=== PATIENT | male | born 1990 | race Hispanic/Latino ===

== ENCOUNTER 2018-05-13 05:01 | Emergency (ER) | payer OTHER ==
[2018-05-13 05:20] VITALS: TEMP 97.5
[2018-05-13] MEDS ORDERED: Sodium Chloride 0.9% 1,000 ML IV STA (05:31)
--- NOTE | 2018-05-13 05:44 | ED PDOC ---
HPI: Abdomen Time Seen by Provider: 05/13/18 05:23 Chief Complaint (Nursing): Abdominal Pain Chief Complaint (Provider): Abdominal Pain History Per: Patient History/Exam Limitations: no limitations Onset/Duration Of Symptoms: Hrs (x1) Current Symptoms Are (Timing): Constant Severity: Severe Location Of Pain/Discomfort: LUQ, LLQ Quality Of Discomfort: Sharp Associated Symptoms: Nausea. denies: Vomiting Additional Complaint(s): 27 years old male with history of kidney stones 8 years ago, presents to ER for evaluation of left sided abdominal pain radiating to back onset 1 hour ago. Patient reports he was awoke by the constant, severe, sharp pain. He repo rts associated nausea but denies vomiting. PMD: non provided Past Medical History Reviewed: Historical Data, Nursing Documentation, Vital Signs Vital Signs: Last Vital Signs Temp 97.5 F L 05/13/18 05:12 Pulse 75 05/13/18 05:12 Resp 17 05/13/18 05:12 BP 154/93 H 05/13/18 05:12 Pulse Ox 98 05/13/18 05:12 - Medical History Other PMH: Kidney Stones - Surgical History Surgical History: No Surg Hx - Family History Family History: States: Unknown Family Hx - Social History Current smoker - smoking cessation education provided: No Alcohol: None Drugs: Denies - Allergies Allergies/Adverse Reactions: Allergies Allergy/AdvReac Type Severity Reaction Status Date / Time No Known Allergies Allergy Verified 05/13/18 05:20 Review of Systems ROS Statement: Except As Marked, All Systems Reviewed And Found Negative Gastrointestinal: Positive for: Nausea, Abdominal Pain (left sided). Negative for: Vomiting Physical Exam - Reviewed Nursing Documentation Reviewed: Yes Vital Signs Reviewed: Yes - Physical Exam Appears: Positive for: Uncomfortable Head Exam: Positive for: ATRAUMATIC, NORMOCEPHALIC Skin: Positive for: Normal Color, Warm, Dry Eye Exam: Positive for: Normal appearance, EOMI, PERRL Neck: Positive for: Normal, Painless ROM, Supple Cardiovascular/Chest: Positive for: Regular Rate, Rhythm. Negative for: Murmur Respiratory: Positive for: Normal Breath Sounds. Negative for: Respiratory Distress Gastrointestinal/Abdominal: Positive for: Normal Exam, Soft. Negative for: Tenderness Back: Positive for: Normal Inspection. Negative for: L CVA Tenderness, R CVA Tenderness Extremity: Positive for: Normal ROM. Negative for: Pedal Edema, Deformity Neurologic/Psych: Positive for: Alert, Oriented (x3) - Laboratory Results Result Diagrams: 05/13/18 05:45 05/13/18 05:44 - ECG O2 Sat by Pulse Oximetry: 98 (RA) Pulse Ox Interpretation: Normal Medical Decision Making Medical Decision Making: Time: 530 Initial impression: 27 y/o male presents with acute renal colic Initial plan: --Labs --Abdomen/Pelvis CT --NaCl 1,000 ml IV --Toradol 30 mg IV --Zofran 4 mg IV 0649 Abdomen/Pelvis CT FINDINGS: LUNG BASES: The lung bases appear clear. No pleural effusions are seen. LIVER: Unremarkable. GALLBLADDER AND BILE DUCTS: The gallbladder appears within normal limits. No radioopaque gallstones are seen. No biliary ductal dilatation is evident. PANCREAS: Unremarkable. SPLEEN: Unremarkable. ADRENAL GLANDS: Unremarkable. KIDNEYS, URETERS, AND BLADDER: 4 x 2 mm calculus is noted at the left UVJ producing mild hydroureteronephrosis. There is perinephric stranding. A cluster of non-obstructing calculi are present in the superior pole of the left kidney, in aggregate measuring approximately 7 x 5 mm. Additional punctate non-obstructing calculus is present in the mid pole of the left kidney. STOMACH AND BOWEL: Unremarkable appearance of the stomach and bowel. No evidence of bowel obstr uction. No evidence suggesting enteritis or colitis. APPENDIX: No evidence of acute appendicitis on CT examination. PERITONEUM: No free fluid. No free air. LYMPH NODES: No lymphadenopathy is evident. REPRODUCTIVE: Unremarkable as visualized. VASCULATURE: No evidence of abdominal aortic aneurysm. BONES: No aggressive appearing osseous lesion. No acute osseous pathology evident. IMPRESSION: 1. 4 x 2 mm calculus is noted at the left UVJ producing mild hydroureteronephrosis. There is perinephric stranding. 2. A cluster of non-obstructing calculi are present in the superior pole of the left kidney, in aggregate measuring approximately 7 x 5 mm. 3. Additional punctate non-obstructing calculus is present in the mid pole of the left kidney. 0654 CT reviewed and found significant for ureteral calculus. Patient is stable for discharge. Scribe Attestation: Documented by Gayle Gloria, acting as a scribe for Rahul Winter MD. Provider Scribe Attestation: All medical record entries made by the Scribe were at my direction and personally dictated by me. I have reviewed the chart and agree that the record accurately reflects my personal performance of the history, physical exam, medic al decision making, and the department course for this patient. I have also personally directed, reviewed, and agree with the discharge instructions and disposition. Disposition - Clinical Impression Clinical Impression: Ureteral calculus - Patient ED Disposition Is Patient to be Admitted: No - Disposition Disposition: Routine/Home Disposition Time: 06:54 Condition: STABLE Forms: [employer] (Malay)
[2018-05-13 06:18] LABS: BLOOD UREA NITROGEN 12 mg/dl (9-20); CALCIUM 9.2 mg/dL (8.4-10.2); GFR NON-AFRICAN AMERICAN > 60
[2018-05-13] MEDS ORDERED: Morphine 4 MG/ML VIAL IVP ONE (06:23)
[2018-05-13] MEDS ORDERED: Morphine 4 MG/ML VIAL ONE (06:34)
[2018-05-13 06:40] LABS: BASO % 0.7 % (0.0-2.0); EOS # 0.1 K/uL (0.0-0.7); EOS % 2.2 % (0.0-4.0); HEMOGLOBIN 13.9 g/dL (12.0-18.0); LYMPH # 2.1 K/uL (1.0-4.3); LYMPH % 33.4 % (20.0-40.0); MEAN CELL VOLUME 88.8 fl (80.0-94.0); MEAN CORPUSCULAR HEMOGLOBIN 30.1 pg (27.0-31.0); MEAN PLATELET VOLUME 9.8 fl (7.2-11.7); MONO # 0.5 K/uL (0.0-0.8); MONO % 7.3 % (0.0-10.0); NEUT # 3.6 K/uL (1.8-7.0); NEUT % 56.4 % (50.0-75.0); NRBC % 0.1 % (0.0-0.0); RBC 4.6 Mil/uL (4.40-5.90); RED CELL DISTRIBUTION WIDTH 13.2 % (11.5-14.5); WHITE BLOOD COUNT 6.4 K/uL (4.8-10.8)
[2018-05-13 07:48] VITALS: BP 119/60; PULSE 72; RESP 16; O2SAT 99
--- NOTE | 2018-05-13 10:01 | CT ---
Date of service: 05/13/2018 PROCEDURE: CT Abdomen and Pelvis without intravenous contrast HISTORY: renal colic COMPARISON: None. TECHNIQUE: Helical CT of the abdomen and pelvis was performed without oral or intravenous contrast as per referring physician request. Coronal and sagittal reformats were generated. Contrast dose: None Radiation dose: Total exam DLP = 582.91 mGy-cm. This CT exam was performed using one or more of the following dose reduction techniques: Automated exposure control, adjustment of the mA and/or kV according to patient size, and/or use of iterative reconstruction technique. FINDINGS: LOWER THORAX: Unremarkable. LIVER: Unremarkable. No gross lesion or ductal dilatation. GALLBLADDER AND BILE DUCTS: Unremarkable. PANCREAS: Unremarkable. No gross lesion or ductal dilatation. SPLEEN: Unremarkable. ADRENALS: Unremarkable. No mass. KIDNEYS AND URETERS: Mild left hydroureteronephrosis caused by 3.8 mm calculus obstructing the distal left ureter immediately proximal to the region left ureterovesical junction. Intrarenal calculi are identified numbering at least 2-3 at the upper midpole left renal calices. No additional radiodense urolithiasis bilaterally. No right hydronephrosis. VASCULATURE: Unremarkable. No aortic aneurysm. No aortic atherosclerotic calcification or mural plaque present. BOWEL: Unremarkable. No obstruction. No gross mural thickening. APPENDIX: Unremarkable. Normal appendix. PERITONEUM: Unremarkable. No free fluid. No free air. LYMPH NODES: Unremarkable. No enlarged lymph nodes. BLADDER: Urinary bladder is completely decompressed. REPRODUCTIVE: Unremarkable. BONES: No acute fracture. OTHER FINDINGS: None. IMPRESSION: 3.8 mm calculus obstructs the distal left ureter immediately proximal left ureter vessel junction causing mild left hydroureteronephrosis. Nonobstructing intrarenal calculi identified in the upper midpole left kidney numbering 2-3. No obstructive uropathy right kidney or radiodense urolithiasis. Decompressed urinary bladder. Concordant preliminary report from [facility], 05/13/2018 6:49 a.m..
== END 2018-05-13 07:05 | disposition home or self-care (01) ==
LOC: H.ER 05:01
DX: N13.2 Hydronephrosis with renal and ureteral calculous obstruction (principal)
CPT/HCPCS: 74176; 80048; 85025; 96374; 99283; J1885; J2270; J2405; J7030